=== PATIENT | female | born 1995 | race Caucasian/White ===

== ENCOUNTER → 2019-10-30 01:06 | Outpatient (CLI) | payer MEDICAID ==
[2016-01-14 17:20] VITALS: BMI 26.6
[~2019-10-30 01:06] MED LIST: IBUPROFEN600 MG PO; PERCOCET 5-3251 TAB PO; PRENATAL COMPLE1 TAB PO
[2019-10-30 02:04] LABS: APPEARANCE CLEAR (CLEAR); BILIRUBIN NEGATIVE (NEGATIVE); COLOR YELLOW (YELLOW); GLUCOSE NEGATIVE (NEGATIVE); KETONE NEGATIVE (NEGATIVE); NITRITE NEGATIVE (NEGATIVE); PROTEIN NEGATIVE (NEGATIVE); UROBILINOGEN NORMAL (NORMAL)
== END | disposition home or self-care (01) ==
LOC: D.LDO 01:06
PROVIDERS: ATTEND Obstetrics & Gynecology
DX: O62.9 Abnormality of forces of labor, unspecified (principal); Z3A.38 38 weeks gestation of pregnancy

== ENCOUNTER 2019-11-05 22:16 | Inpatient (IN) | payer MEDICAID ==
[~2019-11-05] VITALS: Ht 152.4 cm; Wt 72.7 kg
[2019-11-05 23:10] VITALS: BP 116/72; Ht 152.4 cm; Wt 72.7 kg
[2019-11-06 02:57] LABS: HEMOGLOBIN 8.8 g/dL (12-16); MCH 23.7 pg (26.0-34.0); MCHC 30.3 g/dL (31.0-37.0); MEAN PLATELET VOLUME 10.1 fL (7.4-10.4); RBC 3.72 10x6/uL (4.00-5.40); RDW 15.6 % (11.5-14.5); WBC 10.8 10x3/uL (4.8-10.8)
[2019-11-06 03:12] LABS: APPEARANCE CLEAR (CLEAR); BILIRUBIN NEGATIVE (NEGATIVE); COLOR YELLOW (YELLOW); GLUCOSE NEGATIVE (NEGATIVE); KETONE NEGATIVE (NEGATIVE); NITRITE NEGATIVE (NEGATIVE); PROTEIN NEGATIVE (NEGATIVE); SPECIFIC GRAVITY 1.015 (1.005-1.020); UROBILINOGEN NORMAL (NORMAL)
--- NOTE | 2019-11-06 14:20 | NUR ---
PT CROWN POUNCER LIGHT. STATES "SHE PULLED HER IV OUT". THIS NURSE TO ROOM. FAMILY MEMBER HOLDING PRESSURE TO IV SITE WITH PAPER TOWEL. TAPE REMOVED AND PRESSURE BANDAGE PLACED OVER SITE. CATHELON APPEARS INTACT. PT ZARINA WELL.
--- NOTE | 2019-11-06 15:30 | NUR ---
PT STATES HAS URGE TO VOID. PT SITS UP ON SIDE OF BED. EPIDURAL CATH DC'D WITH BLACK TIP INTACT. PT OOB AND AMB TO BR. STEADY GAIT. DENIES LIGHTHEADEDNESS OR FAINT FEELING.
--- NOTE | 2019-11-06 15:35 | NUR ---
PT VOIDS 900+ UNMEASURED URINE NOTED IN COMMODE. PERICARE DONE PER PT. PANTIES AND PADS ON. PT AMB BACK TO BED. DENIES FEELING FAINT OR LIGHTHEADED. BANDAID TO EPIDURAL SITE. PT ZARINA ACTIVITY WELL.
--- NOTE | 2019-11-06 19:15 | NUR ---
PT RESTING IN BED WITH EYES CLOSED. INFANT IN OPEN CRIB AT PTS BEDSIDE. NO DISTRESS NOTED. BED IN LOW POSITION. SR UP X2. CALL LIGHT WITHIN PTS REACH.
--- NOTE | 2019-11-06 19:15 | NUR ---
PT IS RESTING WITH EYES CLOSED, RESP EVEN AND UNLABORED. PT NOT DISTURBED AT THIS TIME.
[2019-11-06 20:15] VITALS: BP 114/63
--- NOTE | 2019-11-06 20:15 | NUR ---
PT RESTING IN BED. S/O AT BEDSIDE HOLDING INFANT. ASSESSMENT COMPLETE PER FLOWSHEET. VSS. BBS CLEAR. ABDOMEN SOFT. POSITIVE BS X4 QUADRANTS. FUNDUS FIRM AND 2 BELOW UMBILICUS. SMALL AMOUNT OF LOCHIA NOTED ON PERIPAD. PT REPORTS THAT SHE JUST CHANGED HER PERIPAD. LOCHIA DISCUSSED. TRACE EDEMA NOTED TO BLE. PT DENIES ANY C/O PAIN AT THIS TIME. WATER PITCHER FILLED. POC DISCUSSED. QUESTIONS ANSWERED. INSTRUCTED PT TO NOTIFY NURSE WITH ANY PROBLEMS, NEEDS, OR CONCERNS. VERBALIZED UNDERSTANDING. BED IN LOW POSITION. SR UP X2. CALL LIGHT WITHIN PTS REACH.
--- NOTE | 2019-11-06 21:14 | NUR ---
PT RESTING IN BED WITH EYES CLOSED. INFANT IN OPEN CRIB AT PTS BEDSIDE. NO DISTRESS NOTED. S/O IN ROOM. NO REQUEST MADE. BED IN LOW POSITION. SR UP X2. CALL LIGHT WITHIN PTS REACH.
[2019-11-06 21:50] VITALS: BP 112/72
--- NOTE | 2019-11-06 21:55 | NUR ---
PT CALLED AND AND REPORTED TO NURSE THAT SHE WAS FEELING DIZZY AND LIGHTHEADED. PT REPORTED TO RN THAT SHE PASSED SEVERAL QUARTERS SIZED CLOTS IN THE TOLIET, BUT SHE HAD FLUSHED THE TOLIET AND THE NURSE WAS UNABLE TO OBSERVE THIS. VS WERE OBTAINED AND STABLE. FUNDUS WAS MASSAGED AND FIRM AT 2 BELOW UMBILICUS WITH A SCANT AMOUNT OF LOCHIA NOTED. PT DENIED HAVING ANY C/O N/V. PERIPADS X2 WERE WEIGHED AND 58MLS OF BLOOD (LOCHIA) TOTAL NOTED ON BOTH PERIPADS. PT RESTING IN BED AT THIS TIME. NO DISTRESS NOTED. INFORMED PT THAT MD WOULD BE NOTIFIED WITH THIS INFORMATION.
--- NOTE | 2019-11-06 22:06 | NUR ---
DR. FRAZIER PAGED REGARDING PTS C/O DIZZYINESS AND LIGHTHEADNESS.
--- NOTE | 2019-11-06 22:10 | NUR ---
DR. FRAZIER RETURNED CALL TO L&D. INFORMED MD THAT PT IS C/O FEELING DIZZY AND LIGHTHEADED AND THAT SHE REPORTED TO NURSE THAT SHE PASSED SEVERAL QUARTERS SIZED CLOTS WHEN SHE WENT TO THE BATHROOM. ALSO REPORTED TO MD THAT PTS VSS. FUNDUS CHECKED AND IS FIRM AND 2 BELOW UMBILICUS. SHE HAD A SCANT AMOUNT OF VAGINAL BLEEDING WITH FUNDAL MASSAGE. INFORMED MD THAT PERIPADS X2 WERE WEIGHED AND 58 MLS OF BLOOD WAS NOTED. THESE TWO PADS WERE FROM [id number]. ALSO REPORTED THAT PTS H&H AT 0250 THIS MORNING WAS 8.8 AND 29.0. ORDER RECEIVED TO CHECK A CBC AND CALL HIM WITH THE RESULTS.
--- NOTE | 2019-11-06 22:15 | NUR ---
PT SITTING UP IN BED EATING. DENIES ANY CAOMPLAINTS OR NEEDS. INFORMED PT THAT I SPOKE DR. FRAZIER AND REPORTED HER C/O BEING DIZZY AND LIGHTHEADED AND PASSING SEVERAL QUARTER SIZED CLOTS IN TOLIET. INFORMED PT THAT DR. FRAZIER ORDERED A CBC TO CHECK HER BLOOD COUNTS. VERBALIZED UNDERSTANDING. INSTRUCTED PT TO NOTIFY NURSE WITH ANY PROBLEMS, NEEDS, OR CONCERNS. VERBALIZED UNDERSTANDING AND TO CALL NURSE WHEN GETTING UP IF SHE IS FEELING DIZZY OR LIGHTHEADED FOR ASSISTANCE. VERBALIZED UNDERSTANDING. BED IN LOW POSITION. SR UP X2. CALL LIGHT WITHIN PTS REACH.
[2019-11-06 23:04] LABS: BASOPHILS 0.1 % (0-2); EOSINOPHILS 2.2 % (0-7); HEMATOCRIT 28.7 % (36.0-48.0); HEMOGLOBIN 8.6 g/dL (12-16); IMMATURE GRANULOCYTES 0.3 % (0-5); LYMPHOCYTES 17.5 % (15-50); MCH 23.4 pg (26.0-34.0); MCV 78.2 fL (80.0-100.0); MONOCYTES 6.1 % (2-11); NEUTROPHILS 73.8 % (40-80); PLATELET COUNT 202 10x3/uL (130-400); RBC 3.67 10x6/uL (4.00-5.40); RDW 15.6 % (11.5-14.5); WBC 12.8 10x3/uL (4.8-10.8)
--- NOTE | 2019-11-06 23:05 | NUR ---
PT RESTING BED HOLDING INFANT. PT REPORTS THAT SHE HAS BEEN UP TO THE BATHROOM AND HAD NO C/O BEING DIZZY OR LIGHTHEADED. INFORMED PT OF HER LAB RESULTS AND THAT THERE WAS A VERY SLIGHT DROP IN HER H&H. PT DENIES ANY COMPLAINTS OR NEEDS AT THIS TIME. INSTRUCTED PT TO NOTIFY NURSE WITH ANY PROBLEMS, NEEDS, OR CONCERNS. VERBALIZED UNDERSTANDING. BED IN LOW POSITION. SR UP X2. CALL LIGHT WITHIN PTS REACH.
--- NOTE | 2019-11-06 23:13 | NUR ---
SCHEDULED TYLENOL GIVEN. PT RATES HER PAIN AT 5/10 AND C/O ABD CRAMPING. INSTRUCTED PT TO NOTIFY NURSE IF MEDICATION NOT EFFECTIVE OR WITH ANY OTHER PROBLEMS, NEEDS, OR CONCERNS. VERBALIZED UNDERSTANDING,
--- NOTE | 2019-11-07 00:25 | NUR ---
PT RESTING IN BED WITH EYES CLOSED. NO DISTRESS NOTED. S/O RESTING ON COUCH. BED IN LOW POSITION. SR UP X2 CALL LIGHT WITHIN PTS REACH.
--- NOTE | 2019-11-07 02:08 | NUR ---
PT RESTING IN BED WITH EYES CLOSED. NO DISTRESS NOTED. BED IN LOW POSITION. SR UP X2. CALL LIGHT WITHIN PTS REACH.
--- NOTE | 2019-11-07 04:10 | NUR ---
PT RESTING IN BED WITH EYES CLOSED. NO DISTRESS NOTED. S/O RESTING ON COUCH. BED IN LOW POSITION. SR UP X2. CALL LIGHT WITHIN PTS REACH.
--- NOTE | 2019-11-07 05:55 | NUR ---
PT RESTING IN BED. SCHEDULED DOSE OF TYLENOL GIVEN. PT DENIES NEEDS AT THIS TIME. INSTRUCTED PT TO NOTIFY NURSE WITH ANY PROBLEMS, NEED, OR CONCERNS. VERBALIZED UNDERSTANDING. BED IN LOW POSITION. SR UP X2. CALL LIGHT WITHIN PTS REACH.
--- NOTE | 2019-11-07 06:29 | NUR ---
PT RESTING IN BED WITH EYES CLOSED. NO DISTRESS NOTED. BED IN LOW POSITION. SR UP X2. CALL LIGHT WITHIN PTS REACH.
[2019-11-07 07:25] VITALS: BP 108/60
--- NOTE | 2019-11-07 07:25 | NUR ---
AM ASSESSMENT COMPLETED, VSS, AFEBRILE, ROUSES TO VERBAL STIMULATION ON ENTRY TO ROOM, ORIENTEDX4, RESP EVEN AND UNLABORED, HEART RRR, ABD SOFT AND MILDLY TENDER TO PALPATION, BS + X4 QUADS, REPORTS + FLATUS, FF AT U/2 AND MIDLINE. LOCHIA RUBRA MODERATE AMOUNT, PT REPORTS TWO DIME SIZED CLOTS PASSED ON VOIDING BUT NO FURTHER INCIDENCE, VOIDS QS WITHOUT DIFFICULTY, ELIZABETH FREELY, NEGATIVE MARLON'S SIGN B LE, NO EDEMA, REDNESS TO B LE, PEDAL PULSES STRONG AND EQUAL B LE. REVIEWED PLAN OF CARE, STATES NEED FOR PAIN MED, WILL GIVE PRN TORADOL PER PT REQUEST. BREAKFAST TRAY TO PT, NO OTHER NEEDS VOICED AT THIS TIME, WILL MONITOR.
--- NOTE | 2019-11-07 07:27 | NUR ---
PRN TORADOL GIVEN WITH SIPS WATER. NO OTHER NEEDS VOICED AT THIS TIME, CONTINUE TO MONITOR.
[2019-11-07 08:10] LABS: RAPID PLASMA REAGIN Non Reactive (Non Reactive)
--- NOTE | 2019-11-07 08:26 | NUR ---
PAIN REASSESSMENT COMPLETED, PT COMPLETES SHOWER, STATES PAIN NOW A 3 ON NUMERIC PAIN SCALE. DENIES NEEDS AT THIS TIME,WILL MONITOR FOR CHANGE IN STATUS. CALL LIGHT IN EASY REACH, BED IN LOW POSITION, BED BRAKES LOCKED.
--- NOTE | 2019-11-07 09:16 | NUR ---
ROUNDS COMPLETED, PT RESTING IN BED WITH EYES CLOSED, LIGHTS DIMMED, RESP EVEN AND UNLABORED, INFANT RESTING IN ROLLING CRIB ADJACENT TO BED, SPOUSE ALSO SLEEPING IN ROOM. NAD NOTED. WILL MONITOR.
--- NOTE | 2019-11-07 10:20 | NUR ---
ROUNDS COMPLETED, MULTIPLE FAMILY AND FRIENDS TO ROOM, INFANT IN ROLLING CRIB, PT AND WITH NAD NOTED AT THIS TIME, CONTINUE TO MONITOR. CALL LIGHT IN EASY REACH OF PT.
--- NOTE | 2019-11-07 11:48 | NUR ---
ROUNDS COMPLETED, REVIEWED PLAN OF CARE FOR TODAY, NO QUESTIONS AT THIS TIME, PT STATES NO NEEDS/CONCERNS/DESIRES RIGHT NOW. FAMILY AT BS. CALL LIGHT IN EASY REACH, CONTINUE TO MONITOR.
--- NOTE | 2019-11-07 12:25 | NUR ---
ROUNDS COMPLETED, NAD NOTED, PAIN REASSESSMENT COMPLETED PER POLICY. CONTINUE TO MONITOR.
--- NOTE | 2019-11-07 13:35 | NUR ---
ROUNDS COMPLETED, DISCUSSED NEED TO CHANGE ROOMS FOR SAFETY REASONS. PT AND SIGNIFICANT OTHER STATE UNDERSTANDING. NAD NOTED, DENIES NEEDS OR CONCERNS. WILL MONITOR.
--- NOTE | 2019-11-07 14:40 | NUR ---
PT TRANSFERRED TO ROOM 1278-A WITH ALL PERSONAL BELONGINGS, NAD NOTED, PT DENIES NEEDS OR CONCERNS AT THIS TIME, WILL MONITOR.
--- NOTE | 2019-11-07 15:20 | NUR ---
ROUNDS COMPLETED, PT RESTING WITH EYES CLOSED IN RIGHT LATERAL POSITION, SIDE RAILS UP X2, BED IN LOW POSITION, BED BRAKES LOCKED, CALL LIGHT IN EASY REACH OF PT. WILL MONITOR.
--- NOTE | 2019-11-07 16:45 | NUR ---
ROUNDS COMPLETED, NAD NOTED. RESP EVEN AND UNLABORED, WILL CONTINUE TO MONITOR.
--- NOTE | 2019-11-07 17:30 | NUR ---
LEMON MAKAH SODA PROVIDED UPON REQUEST AND GIVEN WITH SCHEDULED TYLENOL FOR ABDOMINAL CRAMPING. PT DENIES OTHER NEEDS AT THIS TIME, RESP EVEN AND UNLABORED, NAD NOTED. WILL MONITOR.
--- NOTE | 2019-11-07 18:28 | NUR ---
rounds completed, nad noted. call light in easy reach. continue to monitor.
--- NOTE | 2019-11-07 19:09 | NUR ---
BEDSIDE REPORT REC'D. PT CONVERSING WITH VISITORS AND LAUGHING, DENIES NEEDS AT THIS TIME. IN VISITORS ARMS. BED IN LOW POSIITION WITH SRUP X2. CALL LIGHT AND PHONE WITHIN REACH. WILL CONTINUE TO MONITOR.
--- NOTE | 2019-11-07 20:07 | NUR ---
UP TO BR. REPORTS THAT SHE IS VOIDING WITHOUT DIFFICULTY. DENIES NEEDS AT THIS TIME. INFANT REMAINS IN VISITORS ARMS. WILL CONTINUE TO MONITOR.
[2019-11-07 20:39] VITALS: BP 128/74
--- NOTE | 2019-11-07 20:39 | NUR ---
SHIFT ASSESSMENT COMPLETED PER FLOWSHEET. VSS. FUNDUS FIRM, MIDLINE AND U2 WITH SCANT RUBRA LOCHIA. C/O ABD CRAMPING 03/04, TORADOL GIVEN AND EDUCATED ON TORADOL USE AND FREQUENCY, VERBALIZES UNDERSTANDING. EDUCATION DONE PER FLOWSHEET, VERBALIZES UNDERSTANDING AND DENIES QUESTIONS. REPORTS THAT SHE IS STILL ATTEMPTING TO BF AND SINCE STARTING TO USE LANOLIN LAST PM NIPPLES ARE NOT " SORE." BF POSITIONS DISCUSSED WITH PT, VERBALIZES UNDERSTANDING AND DENIES QUESTIONS. ICE WATER AND SPRITE PROVIDED, DENIES ADDITIONAL NEEDS. INFANT IN VISITORS ARMS. REINFORCED TEACHING FOR SAFETY WITH INFANT IN ROOM DURING NIGHT INCLUDING HAVING LIGHT ON AND NOT SLEEPING WITH INFANT IN PT BED WHILE PT IS SLEEPING, VERBALIZES UNDERSTANDING AND DENIES QUESTIONS. BED IN LOW POSITION WITH SRUP X2. CALL LIGHT AND PHONE WITHIN REACH. WILL CONTINUE TO MONITOR.
--- NOTE | 2019-11-07 21:16 | NUR ---
PAIN REASSESSMENT COMPLETED FOLLOWING TORADOL. . BONDING WITH INFANT, DENIES NEEDS. BED IN LOW POSITION WITH SRUP X2. CALL LIGHT AND PHONE WITHIN REACH. WILL CONTINUE TO MONITOR.
--- NOTE | 2019-11-07 22:10 | NUR ---
BONDING WITH INFANT. DENIES PAIN AND NEEDS AT THIS TIME. STATES THAT SHE IS WAITING ON SIGNIFICANT OTHER TO RETURN TO UNIT FROM WORK. LINENS PROVIDED FOR SIGNIFICANT OTHER. BED IN LOW POSITION WITH SRUP X2. CALL LIGHT AND PHONE WITHIN REACH. WILL CONTINUE TO MONITOR.
--- NOTE | 2019-11-07 22:59 | NUR ---
TYLENOL GIVEN PER ORDER. DENIES PAIN, BUT REQUESTS TO TAKE MED D/T "I'LL BE BREAST FEEDING SOON AND IT WILL CAUSE MY CRAMPING TO COME BACK AND THIS USUALLY HELPS." ICE WATER AND APPLE JUICE PROVIDED. ENCOURAGED PO FLUID INTAKE. INFANT RESTING QUIETLY IN OPEN CRIB AT BEDSIDE. BED IN LOW POSITION WITH SRUP X2. CALL LIGHT AND PHONE WITHIN REACH. WILL CONTINUE TO MONITOR.
--- NOTE | 2019-11-07 23:45 | NUR ---
SIGNIFICANT OTHER TO BEDSIDE. PT BONDING WITH . DENIES PAIN AND NEEDS. POC DISCUSSED WITH FOB PER PT REQUEST. DENIES QUESTIONS. BED IN LOW POSITION WITH SRUP X2. CALL LIGHT AND PHONE WITHIN REACH. WILL CONTINUE TO MONITOR.
--- NOTE | 2019-11-08 01:22 | NUR ---
BF AT THIS TIME. ICE WATER PROVIDED. DENIES ADDITIONAL NEEDS. C/O ABD CRAMPING 2-02/01, "IT'S ONLY SINCE I STARTED FEEDING." DENIES NEED FOR INTERVENTION. FOB RESTING ON COUCH AT BEDSIDE. BED IN LOW POSITION WITH SRUP X2. CALL LIGHT AND PHONE WITHIN REACH. WILL CONTINUE TO MONITOR.
--- NOTE | 2019-11-08 03:14 | NUR ---
RESTING QUIETLY WITH EYES CLOSED LAYING ON LEFT SIDE. RESP REGULAR AND UNLABORED, NO S/S OF DISTRESS NOTED. RESTING QUIETLY IN OPEN CRIB AT BEDSIDE. SIGNIFICANT OTHER RESTING QUIETLY ON COUCH AT BEDSIDE. BED IN LOW POSITION WITH SRUP X2, CALL LIGHT AND PHONE WITHIN REACH.
--- NOTE | 2019-11-08 05:48 | NUR ---
SCHEDULED TYLENOL OFFERED AND REFUSED BY PT. STATES THAT SHE IS NOT HURTING AND DOES NOT NEED. REQUESTS TO CALL FOR TYLENOL PRIOR TO NEXT FEEDING. INSTRUCTED PT THAT SHE COULD HAVE MED WHENEVER SHE NEEDED AT THIS POINT D/T BEING SIX HOURS SINCE LAST DOSE, VERBALIZES UNDERSTANDING. SIGNIFICANT OTHER RESTING ON COUCH AT BEDSIDE. RESTING IN OPEN CRIB. BED IN LOW POSITION WITH SRUP X2. CALL LIGHT AND PHONE WITHIN REACH. WILL CONTINUE TO MONITOR.
--- NOTE | 2019-11-08 07:30 | NUR ---
PT IS ASLEEP AT THIS TIME, PT NOT DISTURBED. WILL RETURN FOR AM ASSESSMENT. SRUP X2, CALL LIGHT AND PHONE WITHIN REACH.
--- NOTE | 2019-11-08 09:25 | NUR ---
DR. FRAZIER IN ROOM SPEAKING WITH PT. PLAN FOR DISCHARGE WHEN IS DISCHARGED.
--- NOTE | 2019-11-08 10:45 | NUR ---
PT IN SHOWER AT THIS TIME. WILL RETURN FOR AM ASSESSMENT. SIG OTHER RESTING IN BED, WATCHING .
[2019-11-08 11:30] VITALS: BP 127/64
--- NOTE | 2019-11-08 11:30 | NUR ---
ASSESSMENT COMPLETED. SEE EMAR FOR ALL MEDS ADM BY THIS RN. PT DENIES HEAVY BLEEDING OR PASSING CLOTS. LARGE ICE WATER SERVED. PT IS DRESSED IN OWN CLOTHING, ANTICIPATING DISCHARGE. SRUP X2, CALL LIGHT AND PHONE WITHIN REACH. SIG OTHER AT BEDSIDE.
[2019-11-08] MEDS ORDERED: ACETAMINOPHEN500 M1 PO (12:08)
--- NOTE | 2019-11-08 12:30 | NUR ---
DISCHARGE INSTRUCTIONS EXPLAINED TO PT AND SIG OTHER, PT DENIES ALL QUESTIONS. SEE EMAR FOR ALL MEDS ADM BY THIS RN. COPIES OF D/C INSTRUCTIONS GIVEN, ALONG WITH PP INSTRUCTIONS, EMERGENCY SHEET, HOME MED LIST PROVIDED TO PT.
--- NOTE | 2019-11-08 13:00 | NUR ---
PT OFF UNIT IN STABLE CONDITION BY WHEELCHAIR WITH IN CARSEAT, WITH SIG OTHER DRIVING PRIVATE VEHICLE.
== END 2019-11-08 13:00 | disposition home or self-care (01) | DRG 807 ==
LOC: D.LD 22:16
PROVIDERS: Obstetrics & Gynecology; ADMIT Obstetrics & Gynecology; ATTEND Obstetrics & Gynecology
PROC: 10E0XZZ Delivery of Products of Conception, External Approach (ICD-10-PCS; principal; 2019-11-06)
DX: O80 Encounter for full-term uncomplicated delivery (principal); Z37.0 Single live birth; Z3A.39 39 weeks gestation of pregnancy

== ENCOUNTER 2021-02-26 20:15 | Inpatient (IN) | payer MEDICAID ==
[~2021-02-26] VITALS: Ht 152.4 cm; Wt 65.8 kg
[~2021-02-26 20:15] MED LIST changes: +ACETAMINOPHEN500 M1 PO
[2021-02-26 20:34] VITALS: BP 112/67; Ht 152.4 cm; Wt 65.8 kg
[2021-02-26 20:38] LABS: HEMATOCRIT 34.7 % (36.0-48.0); HEMOGLOBIN 11.1 g/dL (12-16); MCH 28.4 pg (26.0-34.0); MCV 88.7 fL (80.0-100.0); MEAN PLATELET VOLUME 10.6 fL (7.4-10.4); RBC 3.91 10x6/uL (4.00-5.40); RDW 14.5 % (11.5-14.5); WBC 10.2 10x3/uL (4.8-10.8)
[2021-02-26 20:45] LABS: UDS - AMPHET NEGATIVE QUAL (NEGATIVE); UDS - BARB NEGATIVE QUAL (NEGATIVE); UDS - BENZO NEGATIVE QUAL (NEGATIVE); UDS - COCAINE NEGATIVE QUAL (NEGATIVE); UDS - OPIATE NEGATIVE QUAL (NEGATIVE); UDS - PCP NEGATIVE QUAL (NEGATIVE); UDS - THC NEGATIVE QUAL (NEGATIVE)
[2021-02-27 19:14] VITALS: BP 120/64
--- NOTE | 2021-02-27 19:14 | NUR ---
PT SITTING UP IN BED. PT STATES SHE IS HURTING. PAIN MEDICATIONS ADMINISTERED PER EMAR. VSS. SEE FULL ASSESSMENT PER FLOWSHEET. FF,SLIGHT RIGHT SHIFT. SMALL AMOUNT RUBRA LOCHIA NOTED ON PERIPAD. ICE PACK PROVIDED FOR PERINEUM. PIV SALINE LOCKED IN RT WRIST. C/D/I. PT DENIES OTHER NEEDS AT THIS TIME. SIG OTHER AT BEDSIDE, SUPPORTIVE AND HOLDING INFANT. SRUPX2, CALL LIGHT WITHIN REACH.
--- NOTE | 2021-02-27 20:15 | NUR ---
PT , INFORMED PT THAT I WILL BE BACK LATER TO TRANSFER TO [facility], PT VERBALIZES UNDERSTANDING, DENIES NEEDS AT THIS TIME
--- NOTE | 2021-02-27 21:00 | NUR ---
PT TRANSFERRED VIA AMB, GAIT STEADY, WITH ALL BELONGINGS, FOB AT SIDE, TO ROOM 1222, PT TO BED, PT ORIENTED TO ROOM, PT REQUESTED AND PROVIDED ICE PACK, BED IN LOW POSITION, SIDE RAILS X 2, CALL LIGHT IN REACH
--- NOTE | 2021-02-27 22:14 | NUR ---
PT , PT C/O CRAMPING, INFORMED PT THAT I WILL ADM MEDS WHEN DUE, PT VERBALIZES UNDERSTANDING, DENIES NEEDS AT THIS TIME, FOB AT BEDSIDE
--- NOTE | 2021-02-27 23:08 | NUR ---
PT READY TO TAKE A SHOWER, LINENS PROVIDED, SALINE LOCK COVERED, PT INST TO REMOVE COVERING FROM SALINE LOCK, INST TO USE CALL LIGHT FOR ANY ASSISTANCE, INFANT IN OPEN CRIB CART AND FOB AT BEDSIDE
--- NOTE | 2021-02-28 00:03 | NUR ---
PT RESTING WITH EYES CLOSED, RESP QUIET, NO DISTRESS NOTED, LEFT UNDISTURBED AT THIS TIME, IN OPEN CRIB CART AND FOB AT BEDSIDE
--- NOTE | 2021-02-28 02:02 | NUR ---
PT RESTING WITH EYES CLOSED, RESP QUIET, NO DISTRESS NOTED, LEFT UNDISTURBED AT THIS TIME, IN OPEN CRIB CART AND FOB ASLEEP AT BEDSIDE
--- NOTE | 2021-02-28 04:30 | NUR ---
PT RESTING WITH EYES CLOSED, RESP QUIET, NO DISTRESS NOTED, LEFT UNDISTURBED AT THIS TIME, IN OPEN CRIB CART AND FOB ASLEEP AT BEDSIDE
--- NOTE | 2021-02-28 05:09 | NUR ---
PT AWAKE BOTTLE FEEDING INFANT, C/O KYAW PAIN, ADM TORADOL PO PER MD ORDERS, SEE EMAR, WITH FRESH H20, PT DENIES FURTHER NEEDS, FOB ASLEEP AT BEDSIDE
--- NOTE | 2021-02-28 06:28 | NUR ---
PT RESTING WITH EYES CLOSED, RESP QUIET, NO DISTRESS NOTED, LEFT UNDISTURBED AT THIS TIME, IN OPEN CRIB CART AND FOB ASLEEP AT BEDSIDE
[2021-02-28 07:52] VITALS: BP 115/68
[2021-02-28 08:13] LABS: RAPID PLASMA REAGIN Non Reactive (Non Reactive)
--- NOTE | 2021-02-28 13:15 | NUR ---
IV D/C'D. CATHETER INTACT. GAUZE AND BANDAGE APPLIED TO SITE.
--- NOTE | 2021-02-28 13:30 | NUR ---
REVIEWED DISCHARGE INSTRUCTIONS WITH PT. STATES UNDERSTANDING. FOLLOW UP APPONTMENT WITH DR. LOPEZ GIVEN FOR 04/10/21 @ 9:45. PT DISCHARGED HOME VIA WHEELCHAIR TO PRIVATE VEHICLE.
== END 2021-02-28 13:45 | disposition home or self-care (01) | DRG 807 ==
LOC: D.LD 20:15 → D.WS 20:15 → D.LD 02-27 18:45 → D.WS 02-27 21:00
PROVIDERS: ADMIT Obstetrics & Gynecology; ATTEND Obstetrics & Gynecology
PROC: 10E0XZZ Delivery of Products of Conception, External Approach (ICD-10-PCS; principal; 2021-02-27)
PROC: 3E033VJ Introduction of Other Hormone into Peripheral Vein, Percutaneous Approach (ICD-10-PCS; 2021-02-27)
PROC: 0HQ9XZZ Repair Perineum Skin, External Approach (ICD-10-PCS; 2021-02-27)
DX: O75.89 Other specified complications of labor and delivery (principal); Z37.0 Single live birth; O70.0 First degree perineal laceration during delivery; Z3A.39 39 weeks gestation of pregnancy; I80.00 Phlebitis and thrombophlebitis of superficial vessels of unspecified lower extremity